=== PATIENT | female | born 1985 | race Caucasian/White ===

== ENCOUNTER 2018-10-24 23:59 | Emergency (ER) | payer MEDICAID, SELFPAY ==
--- NOTE | 2018-10-25 00:01 | ED.GENADUL_ITS ---
Discharge Plan Disposition Patient Disposition: HOME Condition: Good Discharge Details Chief Complaint: Laceration Clinical Impression: Abrasion Primary Care Provider: CARLYN VERDUGO ED Provider: Wei Metcalf Home Meds and New Rx's Prescriptions: No Action acetaminophen [Tylenol] 325 MG tablet 325 mg PO PRN PRNRF: 0 ibuprofen 600 MG tablet 600 mg PO Q4H RF: 0 penicillin V potassium 500 MG tablet 500 mg PO QID Qty: 28 RF: 0 methylprednisolone 4 MG tablets,dose pack 4 mg PO DIRECTED Qty: 1 RF: 0 diphenhydramine HCl 50 MG capsule 50 mg PO Q6H WHILE AWAKE Qty: 20 RF: 0 Discharge Instructions Instructions: Abrasion (ED) Additional Instructions: Please keep your fingers john taped together. Please change the bandage regularly. Your tetanus has been updated here today. If you notice any wo rsening of your symptoms, or any new symptoms such as vomiting, diarrhea, fever, chills, shortness of breath, chest pain, numbness, weakness, or fainting , please return immediately to the emergency department for reevaluation. Please follow up with your primary care provider as soon as possible for reassessment and reevaluation. As always, it was a pleasure participating in your medical care today. Referrals: CARLYN VERDUGO [Primary Care Provider] - Medical Decision Making This is a pleasant 32-year-old female who presents for mild abrasion over the dorsal aspect of the index that occurred 4 hours ago. Bleeding was well controlled. Her tetanus is not up-to-date. No evidence of significant bony deformity. We did discuss x-ray but the patient would like to hold off. We will update the patient's tetanus here. I vigorously cleaned and irrigated the mild abrasion. I did place a small amount of Dermabond on top of it, and then bandaged. John tape both fingers for ease as I do feel she may have a mild bony contusion. Patient tolerated this all well. Patient will be discharged home with close follow-up with her PCP. Tetanus is been updated. I have extensively reviewed the treatment plan and discharge instructions with the patient. I have addressed all patient concerns at this time. The patient was made aware of what symptoms to monitor for that would warrant a return to the emergency department. Discussed the plan with the patient, they demonstrate verbal understanding and agreement with our assessment and plan at this time. HPI General Date/Time Provider Initiated Documentation: 10/25/18 00:01 . HPI Narrative: This is a pleasant 32-year-old female who is ambidextrous who presents for mild abrasion to the dorsal aspect of the distal tip of her right index finger. Patient states that 4 hours ago she scraped it on a metal murillo register. Bleeding has been stopped with pressure. However her tetanus is not up-to-date and she has come in for evaluation of that. She denies any numbness or tingling. She does admit to mild tenderness at the DIP joint with movement. She denies any other complaints at this time. No other modifying factors. Re lated Data Home Medications Medication Instructions Recorded Confirmed acetaminophen [Tylenol] 325 mg PO PRN PRN 03/03/14 09/14/14 ibuprofen 600 mg PO Q4H 03/03/14 09/14/14 penicillin V potassium 500 mg PO QID #28 tablet 03/03/14 09/14/14 diphenhydramine HCl 50 mg PO Q6H WHILE AWAKE #20 cap 09/14/14 methylprednisolone 4 mg PO DIRECTED #1 tab 09/14/14 Previous Rx's Medication Instructions Recorded penicillin V potassium 500 mg PO QID #28 tablet 03/03/14 diphenhydramine HCl 50 mg PO Q6H WHILE AWAKE #20 cap 09/14/14 methylprednisolone 4 mg PO DIRECTED #1 tab 09/14/14 Allergies Allergy/AdvReac Type Severity Reaction Status Date / Time No Known Allergies Allergy Unverified 10/25/18 00:08 Review of Systems Review of Systems All systems reviewed & are unremarkable except as noted in HPI and below PFSH Social History Smoking/Tobacco Use Status: Never Alcohol Intake: never Drug use: Never Substance use type: does not use Do you feel safe at home: Yes Do you feel safe in your relationship?: Yes Exam Narrative Exam Narrative: 1.Const: Well-nourished, Well-developed, appearing stated age 2.Eyes: PERRL, no conjunctival injection, and symmetrical lids. 3.ENT: Atraumatic external nose and ears. Moist MM. Neck: Symmetric, trachea mid line, No thyromegaly. 4.CVS: +S1/S2, No murmurs or gallops. Peripheral pulses 2+ and equal in all extremities. Brisk capillary refill in all extremities. 5.RESP: Unlabored respiratory effort. Clear to auscultation bilaterally. No wheezes rales or rhonchi 6.GI: Soft, Nontender/Nondistended, No hepatosplenomegaly. No guarding or rebound. 7.MSK: Normocephalic/Atraumatic, Extremities w/o deformity or ttp No cyanosis or clubbing, Normal movement of all extremities. Minimal bruising at the DIP joint on the right index finger. Normal flexion extension of the distal tip of the index finger, good two-point discrimination, brisk capillary refill, normal sensation and movement peer 8.Skin: Warm, Dry. Small abrasion to the skin on the dorsal aspect of thE index finger, Notably superficial component of abrasion. No evidence of laceration or deep tissue involvement. 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 Sensation grossly intact, no focal neurologic deficits. 10.Psych: (AAO) x3. Appropriate mood and affect
[2018-10-25 00:06] VITALS: BP 118/66; PULSE 91; RESP 18; TEMP 36.7; O2SAT 99
== END 2018-10-25 00:23 | disposition home or self-care (01) ==
LOC: ER 10-25 00:22
PROVIDERS: Emergency Provider Student in an Organized Health Care Education/Training Program; PCP Nurse Practitioner Adult Health
DX: S60.410A Abrasion of right index finger, initial encounter (principal); W45.8XXA Other foreign body or object entering through skin, initial encounter
CPT/HCPCS: 12001; 90471

== ENCOUNTER 2023-10-30 19:44 | Emergency (ER) | payer MEDICAID, SELFPAY ==
[2023-10-30 19:58] VITALS: BP 128/85; PULSE 106; RESP 16; TEMP 36; O2SAT 97
--- NOTE | 2023-10-30 22:08 | W.ED.GENAD ---
Discharge Plan Disposition Patient Disposition: Home Condition: Good Discharge Details Clinical Impression: Rabies exposure Primary Care Provider: Patria Fuentes ED Provider: Wei Metcalf Home Meds and New Rx's Prescriptions: No Action acetaminophen [Tylenol] 325 MG tablet 325 mg PO PRN PRN diphenhydramine HCl 50 MG capsule 50 mg PO Q6H WHILE AWAKE Qty: 20 0RF Discharge Instructions Instructions: Rabies (DC) Additional Instructions: There is concern that you have been exposed to rabies. You have been given the immunoglobulin and the vaccine today. You do require additional rabies vaccine shots. Please return here to the infusion center on November 01, November 05, and November 12 for your 3 remaining shots. You may experience some soreness and chills for the 24 hours after your initial shots. Please drink plenty of fluids and stay well-hydrated. If you notice any worsening of your symptoms, or any new symptoms such as vomiting, diarrhea, fever, chills, difficulty swallowing or drinking, sore throat, shortness of breath, chest pain, numbness, weakness, or fainting , please return immediately to the emergency department for reevaluation. Please follow up with your primary care provider as soon as possible for reassessment and reevaluation. As always, it was a pleasure participating in your medical care today. We will place a referral for you for a new primary care provider. Referrals: Patria Fuentes [Primary Care Provider] - [facility] General Date/Time Provider Initiated Documentation: 10/30/23 20:48. HPI Narrative: This is a pleasant 37-year-old female who presents for rabies exposure. 1 month ago they had 3 rabbits that were pets that were attacked by a skunk.? Skunk cause notable injury to one of the rabbits.? Family has been nursing the main rabbit that was attacked back to health, about 2 weeks ago one of the rabbits that had not been severely injured bit one of the daughters on the left arm.? The wound was cleaned thoroughly. ?And then about 5 days ago one of the rabbits that was not severely attacked suddenly .? It was tested and found to be positive for rabies.? The next day the rabbit that had been severely attacked by the skunk also which was also positive for rabies.? Family contacted health administrators, and it was recommended that they come in for further evaluation.? All family members are asymptomatic.? No complaints of chest pain, numbness or tingling, weakness, headache, dysphagia, sore throat, or other complaints.? All family members, including the patient's immunizations are up to date.? No other family members have been attacked or bitten, however all family members actively participated in the care of all the rabbits including the significantly attack 1.? No other complaints at this time.? No other modifying factors. Related Data Home Medications ?Medication ?Instructions ?Recorded ?Confirmed acetaminophen 325 mg tablet 325 mg PO PRN PRN 03/03/14 10/30/23 (Tylenol) diphenhydramine HCl 50 mg capsule 50 mg PO Q6H WHILE AWAKE #20 caps 09/14/14 10/30/23 Previous Rx's ?Medication ?Instructions ?Recorded diphenhydramine HCl 50 mg capsule 50 mg PO Q6H WHILE AWAKE #20 caps 09/14/14 Allergies Allergy/AdvReac Type Severity Reaction Status Date / Time No Known Allergies Allergy Verified 10/30/23 20:00 General Stated Complaint: AnimalBite BERONICA: 5 Review of Systems All systems reviewed & are unremarkable except as noted in HPI and below Exam Narrative Exam Narrative: 1.Const: Well-nourished, Well-developed, appearing stated age 2.Eyes: PERRL, no conjunctival injection, and symmetrical lids. 3.ENT: Atraumatic external nose and ears. Moist MM. Neck: Symmetric, trachea midline, No thyromegaly. No nuchal rigidity or erythema in the posterior oropharynx. 4.CVS: +S1/S2, No murmurs or gallops. Peripheral pulses 2+ and equal in all extremities. Brisk capillary refill in all extremities. 5.RESP: Unlabored respiratory effort. Clear to auscultation bilaterally. No wheezes rales or rhonchi 6.GI: Soft, Nontender/Nondistended, No hepatosplenomegaly. No guarding or rebound. 7.MSK: Normocephalic/Atraumatic, Extremities w/o deformity or ttp No cyanosis or clubbing, Normal movement of all extremities 8.Skin: Warm, Dry. No rashes or lesions. No skin lesions. 9.Neuro: patient access manager II-XII grossly intact. Sensation grossly intact, no focal neurologic deficits. 10.Psych: (AAO) x3. Appropriate mood and affect Course Vital Signs Vital signs: Vital Signs Temperature 36 C L 10/30/23 19:58 Pulse 106 H 10/30/23 19:58 Respiratory Rate 16 10/30/23 19:58 Blood Pressure 128/85 10/30/23 19:58 Pulse Oximetry 97 10/30/23 19:58 Temperature 36 C L 10/30/23 19:58 Pulse 106 H 10/30/23 19:58 Respiratory Rate 16 10/30/23 19:58 Respiratory Effort Normal 10/30/23 20:00 Blood Pressure 128/85 10/30/23 19:58 Pulse Oximetry 97 10/30/23 19:58 Oxygen Delivery Method Room Air 10/30/23 19:58 Oxygen Flow Rate 0 10/30/23 19:58 Pain Level 0 10/30/23 19:58 Medical Decision Making This is a pleasant 37-year-old female who presents today for post rabies exposure. 1 month ago they had 3 rabbits that were pets that were attacked by a skunk. Skunk cause notable injury to one of the rabbits. Family has been nursing the main rabbit that was attacked back to health, about 2 weeks ago one of the rabbits that had not been severely injured bit one of the daughters on the left arm. The wound was cleaned thoroughly. And then about 5 days ago one of the rabbits that was not severely attacked suddenly . It was tested and found to be positive for rabies. The next day the rabbit that had been severely attacked by the skunk also which was also positive for rabies. Family contacted health administrators, and it was recommended that they come in for further evaluation. All family members are asymptomatic. No complaints of chest pain, numbness or tingling, weakness, headache, dysphagia, sore throat, or other complaints. All family members, including the patient's immunizations are up to date. No other family members have been attacked or bitten, however all family members actively participated in the care of all the rabbits including the significantly attack 1. No other complaints at this time. No other modifying factors. The patient's physical exam demonstrates well-appearing patient, no erythema in the posterior oropharynx, no nuchal rigidity, no dysphagia, no bite [place] scrapes or lesions. No signs of wound or skin compromise. Secondary to the proximity and handling of rabies positive animals, the patient is at high risk for rabies exposure. Although there are no symptoms, postexposure prophylaxis is indicated, as well as immunization. Patient and family have elected for this. We discussed risks and benefits of the vaccine and immunoglobulin, patient and family consent for treatment. Full dose of immunoglobulin and vaccine will be given. Immunoglobulin will be calculated out at 20 international units/kg. Dosing time for the patient and family will be a dose today at day 0, repeat dose for day 3 on 11/02/2023, 7-day dose on 11/06/2023, and 14-day dose at 11/13/2023. Patient has been given paperwork for follow-up for the infusion center. Immunoglobulin and vaccine were administered here, nursing was instructed to give immunoglobulin and vaccine in opposite arms/locations. Family was observed after medication administration and has had no complications or reactions. Family safe/stable for discharge. Additionally family is getting all pets immunized and tested. Discussed red flags for which to return. I have extensively reviewed the treatment plan and discharge instructions with the patient and their family. I have addressed all patient concerns at this time. The patient and family was made aware of what symptoms to monitor for that would warrant a return to the emergency department. Discussed the plan with the patient and family, they demonstrate verbal understanding and agreement with our assessment and plan at this time. The documentation in this chart was dictated using [employer] dictation software. Please excuse any dictation errors. Quality:SDOH Health Related Social Needs: No Data to Display PFSH All Active Problems Rabies exposure (Acute) Social History Smoking/Tobacco Use Status: Never Smoking risk assessment performed?: Yes Alcohol Intake: never Drug use: Never Substance use type: does not use Do you feel safe at home: Yes Do you feel safe in your relationship?: Yes
[2023-10-30] MEDS: Rabies vaccine (PCEC)/PF 2.5 UNITS/ML VIAL IM (22:15)
[2023-10-30] MEDS: Rabies Immune Globulin 300 UNIT/ML VIAL 1802 UNIT IM (22:16)
== END 2023-10-30 23:05 | disposition home or self-care (01) ==
PROVIDERS: Emergency Provider Student in an Organized Health Care Education/Training Program; PCP Nurse Practitioner Adult Health
DX: Z20.3 Contact with and (suspected) exposure to rabies (principal)
CPT/HCPCS: 90375; 90471; 96372; 99283; 90675

== ENCOUNTER 2023-11-06 03:07 | Outpatient (RCR) | payer MEDICAID, SELFPAY ==
[2023-11-02] MEDS: Rabies vaccine (PCEC)/PF 2.5 UNITS/ML VIAL IM (13:26)
[2023-11-06] MEDS: Rabies vaccine (PCEC)/PF 2.5 UNITS/ML VIAL IM (12:52)
== END 2023-11-08 23:59 | disposition home or self-care (01) ==
LOC: INF 03:07
PROVIDERS: PCP Nurse Practitioner Adult Health; Visit Provider Student in an Organized Health Care Education/Training Program
DX: Z29.14 Encounter for prophylactic rabies immune globulin (principal); Z20.3 Contact with and (suspected) exposure to rabies
CPT/HCPCS: 96372; 90675

== ENCOUNTER 2023-11-13 02:53 | Outpatient (RCR) | payer MEDICAID, SELFPAY ==
[2023-11-13] MEDS: Rabies vaccine (PCEC)/PF 2.5 UNITS/ML VIAL IM (13:24)
== END 2023-12-08 23:59 | disposition home or self-care (01) ==
LOC: INF 02:53
PROVIDERS: PCP Nurse Practitioner Adult Health; Visit Provider Student in an Organized Health Care Education/Training Program
DX: Z29.14 Encounter for prophylactic rabies immune globulin (principal); Z20.3 Contact with and (suspected) exposure to rabies
CPT/HCPCS: 96372; 90675